=== PATIENT | male | born 1960 | race Caucasian/White ===

== ENCOUNTER 2021-06-03 09:16 | Emergency (ER) | payer BC ==
[~2021-06-03] VITALS: Ht 177.8 cm; Wt 117.9 kg
[~2021-06-03 09:16] MED LIST: BACTRIM DS 8001 TA1 PO; HYDROCODONE BIT1 T11 PO; VIBRAMYCIN100 MG PO; ZOFRAN4 MG PO
[2021-06-03 10:03] LABS: BILIRUBIN Negative (Negative); BLOOD 3+ (Negative); CLARITY Turbid (Clear); COLOR Orange (Yellow); GLUCOSE 2+ (Negative); KETONE 1+ (Negative); LEUKO ESTERASE Trace (Negative); NITRITE Negative (Negative); SPECIFIC GRAVITY 1.025 (1.001-1.030)
[2021-06-03 10:12] LABS: RBC TNTC rbc/hpf (0-2)
[2021-06-03 10:13] LABS: BACTERIA 3+
== END 2021-06-03 10:23 | disposition home or self-care (01) ==
LOC: ED 09:16
PROVIDERS: Student in an Organized Health Care Education/Training Program
DX: N20.9 Urinary calculus, unspecified (principal); Z87.442 Personal history of urinary calculi; Z88.0 Allergy status to penicillin; Z91.013 Allergy to seafood; Z79.2 Long term (current) use of antibiotics; Z79.899 Other long term (current) drug therapy